=== PATIENT | female | born 2000 | race Caucasian/White ===

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

== ENCOUNTER 2018-06-16 22:00 | Emergency (ER) | payer OTHER ==
[2018-06-16 22:00] VITALS: BMI 28.8
[2018-06-16 22:28] VITALS: BP 127/86; PULSE 76; RESP 18; TEMP 99.7; O2SAT 96
--- NOTE | 2018-06-16 23:00 | C.PDOC ---
History Of Present Illness 18-year-old female presents to the ED for evaluation of mid-lower back pain that has been radiating to her left leg for 3 weeks. Patient took Advil today with minimal relief. She has not seen a doctor for her symptoms. Patient denies fever, chills, abdominal pain, urinary//bowel incontinence, dysuria, hematuria, extremity numbness/weakness. Time Seen by Provider: 06/16/18 22:26 Chief Complaint (Nursing): Back Pain History Per: Patient History/Exam Limitations: no limitations Onset/Duration Of Symptoms: Other (3 weeks ) Current Symptoms Are (Timing): Still Present Quality Of Discomfort: "Pain" Previous Symptoms: Back Pain Associated Symptoms: denies: Incontinence, New Weakness, New Numbness Additional History Per: Patient Past Medical History Reviewed: Historical Data, Nursing Documentation, Vital Signs Vital Signs: Last Vital Signs Temp 99.7 F H 06/16/18 22:20 Pulse 76 06/16/18 22:20 Resp 18 06/16/18 22:20 BP 127/86 06/16/18 22:20 Pulse Ox 96 06/17/18 04:09 - Medical History PMH: No Chronic Diseases Surgical History: No Surg Hx Family History: States: Unknown Family Hx - Social History Hx Alcohol Use: No Hx Substance Use: No - Immunization History Hx Tetanus Toxoid Vaccination: No Hx Influenza Vaccination: No Hx Pneumococcal Vaccination: No Review Of Systems Constitutional: Negative for: Fever, Chills Gastrointestinal: Negative for: Abdominal Pain Genitourinary: Negative for: Dysuria, Incontinence, Hematuria Musculoskeletal: Positive for: Back Pain (mid-lower ), Leg Pain (left) Neurological: Negative for: Weakness, Numbness Physical Exam - Physical Exam Appears: Non-toxic, No Acute Distress Skin: Normal Color, Warm, Dry Head: Atraumatic, Normacephalic Eye(s): bilateral: Normal Inspection Oral Mucosa: Moist Neck: Supple Chest: Symmetrical, No Deformity, No Tenderness Cardiovascular: Rhythm Regular, No Murmur Respiratory: Normal Breath Sounds, No Rales, No Rhonchi, No Wheezing Gastrointestinal/Abdominal: Soft, No Tenderness, No Guarding, No Rebound Back: Paraspinal Tenderness (left-sided ), No Straight Leg Raising Extremity: Normal ROM, No Tenderness, Capillary Refill (less than 2 seconds), No Deformity, No Swelling Neurological/Psych: Oriented x3, Normal Speech, Normal Cognition Gait: Steady ED Course And Treatment O2 Sat by Pulse Oximetry: 96 (on RA) Pulse Ox Interpretation: Normal Progress Note: Flexeril PO and Motrin PO given. On re-exam, patient is resting comfortably, showing no signs of distress and reports an improvement in her symptoms. Patient is fully ambulatory in the ED without distress and is stable for discharge. Patient is advised to follow up with her PMD within 1-2 days for further evaluation and/or return to the ED if symptoms persist or worsen. Disposition Counseled Patient/Family Regarding: Diagnosis - Disposition Disposition: HOME/ ROUTINE Disposition Time: 23:00 Condition: STABLE Additional Instructions: Please follow up with PMD Take medication as directed Return to ER if worse Prescriptions: Cyclobenzaprine [Cyclobenzaprine HCl] 10 mg PO HS #10 tab Ibuprofen [Motrin] 600 mg PO Q6H #20 tab Instructions: Low Back Pain (DC) Forms: [employer] ([place] Korean) - Clinical Impression Clinical Impression: Low back pain - PA / SENIOR MANAGER ASSET PROTECTION / Resident Statement MD/DO has reviewed & agrees with the documentation as recorded. - Scribe Statement The provider has reviewed the documentation as recorded by the Scribe (Kimberlee Pruitt) All medical record entries made by the Scribe were at my direction and personally dictated by me. I have reviewed the chart and agree that the record accurately reflects my personal performance of the history, physical exam, medical decision making, and the department course for this patient. I have also personally directed, reviewed, and agree with the discharge instructions and disposition.
== END 2018-06-16 23:05 | disposition home or self-care (01) ==
LOC: C.ER 22:00
DX: M54.5 Low back pain (principal)

== ENCOUNTER 2018-07-19 20:26 | Emergency (ER) | payer OTHER ==
[2018-07-19 20:26] VITALS: BMI 28.8
[2018-07-19 21:04] VITALS: BP 130/90; PULSE 95; RESP 20; TEMP 99; O2SAT 98
--- NOTE | 2018-07-19 21:14 | C.PDOC ---
History Of Present Illness 18 year old female presents to the ED complaining of sharp right ear pain, onset a few hours ago. Patient states she feels like her hearing is decreased. Otherwise she has no fever, chills, or other complaints. Time Seen by Provider: 07/19/18 21:06 Chief Complaint (Nursing): ENT Problem History Per: Patient History/Exam Limitations: no limitations Onset/Duration Of Symptoms: Hrs Current Symptoms Are (Timing): Still Present Past Medical History Reviewed: Historical Data, Nursing Documentation, Vital Signs Vital Signs: Last Vital Signs Temp 99 F 07/19/18 21:02 Pulse 95 H 07/19/18 21:02 Resp 20 07/19/18 21:02 BP 130/90 07/19/18 21:02 Pulse Ox 98 07/19/18 21:02 - Medical History PMH: Surgical History: Hernia Repair Family History: States: Unknown Family Hx - Social History Hx Tobacco Use: No Hx Alcohol Use: No Hx Substance Use: No - Immunization History Hx Tetanus Toxoid Vaccination: No Hx Influenza Vaccination: No Hx Pneumococcal Vaccination: No Review Of Systems Except As Marked, All Systems Reviewed And Found Negative. Constitutional: Negative for: Fever, Chills Eyes: Negative for: Vision Change ENT: Positive for: Ear Pain (right). Negative for: Ear Discharge, Nose Congestion, Throat Pain Respiratory: Negative for: Cough Gastrointestinal: Negative for: Vomiting Neurological: Negative for: Headache, Dizziness Physical Exam - Physical Exam Appears: Well, Non-toxic, No Acute Distress Skin: Warm, Dry, No Rash Head: Atraumatic, Normacephalic Eye(s): bilateral: Normal Inspection, PERRL, EOMI Ear(s): Left: Normal, Right: TM Erythema (TM with bright red erythema, and bulging; No mastoid tenderness) Oral Mucosa: Moist Neck: Normal ROM Chest: Symmetrical Cardiovascular: Rhythm Regular, No Murmur Respiratory: Normal Breath Sounds, No Rales, No Rhonchi, No Wheezing Extremity: Bilateral: Atraumatic, Normal Color And Temperature, Normal ROM Neurological/Psych: Oriented x3, Normal Speech ED Course And Treatment O2 Sat by Pulse Oximetry: 98 (RA) Pulse Ox Interpretation: Normal Medical Decision Making Medical Decision Making: Impression: Right ear pain Initial Plan: * Amoxicillin 500 mg PO * Motrin 600 mg PO Patient remains afebrile alert and oriented with stable vital signs during ER evaluation. Patient feels comfortable going home and will be discharged. Provided with prescriptions for antibiotics and Motrin. Patient given follow up instructions. Instructed to return to ER if symptoms worsen or new symptoms arise. Disposition Counseled Patient/Family Regarding: Diagnosis, Need For Followup, Rx Given - Disposition Referrals: Bonifacio Garland MD [Staff Provider] - Disposition: HOME/ ROUTINE Disposition Time: 21:30 Condition: STABLE Additional Instructions: Take antibiotic twice daily and be sure to finish taking all of antibiotic Tylenol or Motrin alternating every 4-6 hours for Fever 100.4F or higher. Take for pain Follow up with ENT Prescriptions: Amoxicillin 875 mg PO BID #14 tablet Ibuprofen [Motrin] 600 mg PO Q8 #30 tab Instructions: Ear Infections (Otitis Media) (DC) Forms: [employer] (Nepali) - POA Present On Arrival: None - Clinical Impression Clinical Impression: Otitis media - PA / RESIN COATER / Resident Statement MD/DO has reviewed & agrees with the documentation as recorded. - Scribe Statement The provider has reviewed the documentation as recorded by the Scribe (Alana Lewis) All medical record entries made by the Scribe were at my direction and pers onally dictated by me. I have reviewed the chart and agree that the record accurately reflects my personal performance of the history, physical exam, medical decision making, and the department course for this patient. I have also personally directed, reviewed, and agree with the discharge instructions and disposition.
== END 2018-07-19 21:35 | disposition home or self-care (01) ==
LOC: C.ER 20:26
DX: H66.91 Otitis media, unspecified, right ear (principal)